=== PATIENT | female | born 1980 | race Caucasian/White ===

== ENCOUNTER → 2020-06-01 | Outpatient (CLI) | payer BC ==
[~2020-06-01] MED LIST: CRESTOR10 MG PO; LOSARTAN-HCTZ1 EAC2 PO; METFORMIN HCL500 MG PO; NORCO 7.5-3251 EACH PO; OMEPRAZOLE20 M1 PO; PANTOPRAZOLE SO40 MG PO; VICTOZA 1818 MG/3 ML SC; VITAMIN D350000 UNIT PO
== END ==
LOC: MAMO 12:23
DX: Z12.31 Encounter for screening mammogram for malignant neoplasm of breast (principal)
CPT/HCPCS: 77063; 77067